=== PATIENT | female | born 1960 | race Caucasian/White ===

== ENCOUNTER 2024-10-29 12:45 | Outpatient (CLI) | payer MEDICARE, SELFPAY ==
--- NOTE | 2024-10-29 12:50 | CT_ITS ---
FINAL REPORT CLINICAL HISTORY: CRP ELEVATED COMPARISON: None FINDINGS: CT NECK WITH CONTRAST TECHNIQUE: Axial CT with IV contrast administration. This study was performed with techniques to keep radiation doses as low as reasonably achievable, (ALARA). Individualized dose reduction techniques using automated exposure control or adjustment of mA and/or kV according to the patient's size were employed. FINDINGS: No adenopathy or mass lesion is present . 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 Salivary glands are normal. Larynx is unremarkable. There are 2 lesions in the left lobe of the thyroid, a smaller hypodense 7 mm lesion, as well as a calcified 10 mm lesion. There is no abscess. IMPRESSION: No cervical adenopathy identified. 2 lesions in the left lobe of the thyroid as described, recommend dedicated thyroid ultrasound for further evaluation. 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 This study was performed using automated techniques to achieve radiation exposure as low as reasonably achievable Reviewed, Interpreted and Dictated by Jeff Flynn MD Transcribed by Emilie Lewis Authenticated and [facility]
[2024-10-29] MEDS: SODIUM CHLORIDE 0.9% 10ML SYR (RAD ONLY) 10 ML IV (13:40)
[2024-10-29] MEDS: IOPAMIDOL-370 (76%);100ML BOTTLE 75 ML IV (13:40)
== END 2024-10-29 23:59 | disposition home or self-care (01) ==
LOC: RAD 12:46
PROVIDERS: PCP Nurse Practitioner Family; Visit Provider Nurse Practitioner Family
DX: R79.82 Elevated C-reactive protein (CRP) (principal)
CPT/HCPCS: 70491; Q9967